=== PATIENT | male | born 1995 ===

== ENCOUNTER 2024-06-19 17:32 | Emergency (ER) | payer OTHER ==
[2024-06-19 19:13] VITALS: PULSE 76; RESP 16; TEMP 99.4
[2024-06-19] MEDS ORDERED: SODIUM CHLORIDE 0.9% 1000ML 1,000 ML ONE (20:24)
[2024-06-19] MEDS ORDERED: FAMOTIDINE40 MG PO (20:26)
[2024-06-19] MEDS ORDERED: PANTOPRAZOLE SO40 MG PO (20:26)
[2024-06-19] MEDS ORDERED: CARAFATE1 GM/10 ML PO (20:28)
[2024-06-19] MEDS: SODIUM CHLORIDE 0.9% 1000ML 1,000 ML IV ONE (20:50)
[2024-06-19 21:26] VITALS: BP 161/99; PULSE 99; RESP 16; TEMP 98.6; O2SAT 99
== END 2024-06-19 21:30 | disposition home or self-care (01) ==
LOC: FSED 19:36
DX: R10.13 Epigastric pain (principal); K21.9 Gastro-esophageal reflux disease without esophagitis; R94.31 Abnormal electrocardiogram [ECG] [EKG]
CPT/HCPCS: 80048; 80076; 80307; 84484; 85025; 93005; 99284; J2470; J7030